=== PATIENT | female | born 1980 | race Caucasian/White ===

== ENCOUNTER 2018-05-17 10:33 | Day surgery (SDC) | payer OTHER ==
[~2018-05-17 10:33] MED LIST: KETOROLAC TROMETHAMINE 30 MG/1ML VIAL ONE; LACTATED RINGERS 1,000 ML IV.SOLN IV ONE; MIDAZOLAM HCL 2 MG/2 ML VIAL ONE; PROPOFOL 200 MG/20 ML VIAL IV ONE; ceFAZolin SODIUM 1 GM VIAL ONE; fentaNYL CITRATE/PF 100 MCG/ 2ML AMP ONE
[2018-05-17] MEDS ORDERED: PREGNANCY TEST KIT 1 EACH KIT MC ONE (10:54)
[2018-05-17] MEDS ORDERED: LACTATED RINGERS 1,000 ML IV ONE (10:55)
[2018-05-17] MEDS ORDERED: LEVALBUTEROL HCL 1.25 MG/3 ML AMPUL.NEB NEB ONE (11:25)
== END 2018-05-17 16:25 | disposition home or self-care (01) ==
LOC: OPSURG 10:33
PROVIDERS: ATTEND Orthopaedic Surgery
DX: G56.01 Carpal tunnel syndrome, right upper limb (principal)
CPT/HCPCS: 64721; J0690; J1885; J2250; J2704; J3010; J7120; J7614

== ENCOUNTER 2018-06-22 07:34 | Day surgery (SDC) | payer OTHER ==
[2018-06-22] MEDS ORDERED: MIDAZOLAM HCL 2 MG/2 ML VIAL ONE (08:48)
[2018-06-22] MEDS ORDERED: fentaNYL CITRATE/PF 100 MCG/2 ML INJ. ONE (08:48)
[2018-06-22] MEDS ORDERED: LIDOCAINE HCL 2% PF 100MG/5ML VIAL IJ ONE (08:48)
[2018-06-22] MEDS ORDERED: LACTATED RINGERS 1,000 ML IV.SOLN IV ONE (08:48)
[2018-06-22] MEDS ORDERED: LEVALBUTEROL NEB 1.25 MG/3 ML VIAL.NEB IH ONE (08:48)
[2018-06-22] MEDS ORDERED: ceFAZolin SODIUM 1 GM VIAL ONE (08:48)
[2018-06-22] MEDS ORDERED: FAMOTIDINE 20 MG/2 ML VIAL ONE (08:48)
[2018-06-22] MEDS ORDERED: PROPOFOL 200 MG/20 ML VIAL IV ONE (08:48)
--- NOTE | 2018-06-22 14:16 | Operative Note ---
OPERATIVE REPORT PATIENT NAME: JUSTIN ZAMORA DATE OF : 1980 MR#: PROCEDURE DATE: 06/22/2018 PREOPERATIVE DIAGNOSIS: Left hand carpal tunnel syndrome. POSTOPERATIVE DIAGNOSIS: Left hand carpal tunnel syndrome. PROCEDURES PERFORMED: 1. Endoscopic decompression of the median nerve at the wrist. 2. Endoscopic decompression of the ulnar nerve at the wrist. SURGEON: Marques Napier Jr., M.D. HOME HEALTH AIDE CAREGIVER: None. ANESTHESIA: Local with IV sedation by anesthesia. COMPLICATIONS: None. CONDITION FOLLOWING THE PROCEDURE: Good. OPERATIVE FINDINGS: This patient with bilateral carpal tunnel syndrome previously unsuccessfully treated with endoscopic carpal tunnel release on the right hand, now presents for the left hand to be similarly treated. DESCRIPTION OF PROCEDURE: The patient was taken to the operating room and placed in supine position. Skin infiltration with 2% lidocaine was carried out on the ulnar side of the wrist proximal to the wrist crease. It was also carried out at the ulnar aspect of the proximal palmar crease. The arm was then thoroughly scrubbed and sterilely prepped and draped. The arm was exsanguinated and tourniquet inflated. A small transverse incision was made on the ulnar aspect proximal to the wrist. Corral scissors were then used to penetrate the volar fascia and enter the carpal canal. A skin incision was also made within the skin crease at the confluence of a line extended from the ring finger and a line extended transversely from the base of the thumb-index webspace. The cannula with a boat obturator was then placed into the carpal tunnel through the proximal incision. The floor and the hamate were carefully probed sweeping all tendinous structures and soft tissue structures to the radial side. Keeping the boat obturator and the cannula directed in all the directions, the carpal tunnel was completely traversed holding on the soft tissue and tendinous structures to the radial side. Care was taken not to pass the cannula into Guyon canal. The boat obturator was then led to be externalized through the transverse incisions made in the palm. The opening in the cannula was then directed in the ulnar direction. The obturator was then removed, and the wrist was placed into the holding tray with hyperextension and digits held in extension. A cotton applicator was passed through the cannula. The endoscope was then inserted, visualizing the transverse carpal ligament and its confluence with the Guyon canal. Repositioning would be carried out if any tendinous structures were found creating an obstructive view of the transverse carpal ligament. Once a transverse carpal ligament unobstructed view was obtained, the white handle knife blade was inserted, and the proximal aspect of the transverse carpal ligament in its most ulnar extent was engaged. The knife was advanced, cutting through the layers of the transverse carpal ligament layer by layer until Guyon canal was entered. It was continued distally, and also a retrograded knife was used to engage the most distal aspect of the transverse carpal ligament and usually some hypothenar muscular fibers were engaged as well. Complete unification of the Guyon canal and the carpal canal was thus performed by dividing the transverse carpal ligament at its insertion on the hamate which left the transverse carpal ligament and the covering of the Guyon canal as an intact structure, now away from the hamate and carpus. Good visualization of the ulnar neurovascular bundle was thus afforded. The cannula was then removed and, using a Ragnell retractor and appropriate lighting, the volar fascia was divided under direct visualization proximally and distally from the small transverse hole proximal to the wrist to be sure that it joined and even helped with proper unification. Copious irrigation was followed by closure of the wound with 4-0 Ethilon. A sterile bulky dressing was applied. The patient was then taken to the recovery room in good condition. MARQUES NAPIER JR., M.D. LORELEI/russ REBECCA
== END 2018-06-22 10:56 | disposition home or self-care (01) ==
LOC: OPSURG 07:34
PROVIDERS: ATTEND Orthopaedic Surgery
DX: G56.02 Carpal tunnel syndrome, left upper limb (principal)
CPT/HCPCS: 64721; J0690; J2001; J2250; J2704; J3010; J7120; J7614